=== PATIENT | female | born 1990 | race Two or more races ===

== ENCOUNTER 2024-04-22 11:12 | Observation (INO) | payer MEDICAID, SELFPAY ==
--- NOTE | 2024-04-22 11:49 | XR_ITS ---
Examination: Abdomen sonogram, Limited Date and time of exam: April 14, 2024 1510 hrs. Indications: Epigastric pain and vomiting beginning 3 days ago Technique: Real-time hodge scale transabdominal sonographic images of the upper abdomen obtained. Findings: Tiny gallstones Gallbladder sludge Gallbladder wall 0.6 cm with edema Common bile duct 0.5 cm Only partly visualized Pancreatic head 2.3 cm Liver 12.5 cm lobular contour no focal liver lesions Normal hepatopedal portal venous flow Patent IVC Impression: Acute calculus cholecystitis Given the small gallstones, consider MRCP follow-up to exclude small stones in the common bile duct Primary hepatocellular disease
[2024-04-22 11:50] VITALS: BP 136/79; PULSE 65; RESP 24; TEMP 37; O2SAT 96; BMI 29.9
--- NOTE | 2024-04-22 11:51 | PD.EDABDPN ---
ED Abdominal Pain RME/HPI General Chief Complaint: Abdominal Pain Stated complaint: Abdominal pain, vomiting X 3 days Time seen by provider: 04/22/24 11:29 Arrival date/time: 04/22/24 11:12 33-year-old female with no known medical history presents to the emergency room with a chief complaint of epigastric 8 out of 10 abdominal pain and vomiting x 3 days. Patient was sent over by her primary care provider. Source: patient Mode of arrival: ambulatory Limitations: no limitations Related Data Previous Rx's ?Medication ?Instructions ?Recorded acetaminophen 650 mg 650 mg PO Q8H PRN fever or pain 11/12/21 tablet,extended release #30 tabs ibuprofen 600 mg tablet 600 mg PO Q8H PRN fever or pain 11/12/21 #30 tabs Allergies Allergy/AdvReac Type Severity Reaction Status Date / Time No Known Allergies Allergy Verified 04/22/24 11:20 Review of Systems Review of Systems Systems Reviewed: All systems reviewed, normal except as documented Constitutional Constitutional: Reports system reviewed and no additional complaints, except as documented, Denies fatigue, Denies fever(s), Denies headache(s) and Denies weakness Eyes Eyes: Reports system reviewed and no additional complaints, except as documented, Denies blurry vision and Denies change in vision ENT Ears, Nose, Mouth, and Throat: Reports system reviewed and no additional complaints, except as documented, Denies otalgia, Denies headache(s), Denies nasal congestion, Denies throat swelling and Denies vertigo Cardiovascular Cardiovascular: Reports system reviewed and no additional complaints, except as documented, Denies chest pain, Denies dyspnea and Denies dyspnea on exertion Respiratory Respiratory: Reports system reviewed and no additional complaints, except as documented, Denies chest congestion, Denies cough, Denies dyspnea, Denies dyspnea on exertion and Denies wheezing Gastrointestinal Gastrointestinal: Reports system reviewed and no additional complaints, except as documented, Reports abdominal pain, Reports cramping, Reports dyspepsia, Reports nausea and Reports vomiting Genitourinary Genitourinary: Reports system reviewed and no additional complaints, except as documented Musculoskeletal Musculoskeletal: Reports system reviewed and no additional complaints, except as documented and Denies back pain Integumentary/Breasts Skin/Breast: Reports system reviewed and no additional complaints, except as documented and Denies wounds Neurologic Neurologic: Reports system reviewed and no additional complaints, except as documented, Denies confusion, Denies headache(s), Denies lack of coordination, Denies vertigo and Denies weakness Psychiatric Psychiatric: Reports system reviewed and no additional complaints, except as documented, Denies anxiety, Denies confusion, Denies depression, Denies paranoia, Denies suicidal ideation and Denies tactile hallucinations Endocrine Endocrine: Reports system reviewed and no additional complaints, except as documented and Denies fatigue Hematologic/Lymphatic Hematologic/Lymphatic: Reports system reviewed and no additional complaints, except as documented and Denies lymphadenopathy Allergic/Immunologic Allergic/Immunologic: Reports system reviewed and no additional complaints, except as documented, Denies throat swelling, Denies urticaria and Denies wheezing ED Exam General Limitations: Present no limitations General appearance: Present alert and in no apparent distress Head Head exam: Present atraumatic Eye Eye exam: Present normal appearance, PERRL and EOMI ENT ENT exam: Present normal exam, normal oropharynx and mucous membranes moist Neck Neck exam: Present normal inspection, full ROM and trachea midline Chest Chest inspection: Present normal inspection and symmetric chest wall rise Respiratory Respiratory exam: Present normal lung sounds bilaterally Cardiovascular Cardiovascular exam: Present regular rate, normal rhythm and normal heart sounds Abdominal Exam Abdominal exam: Present soft, tenderness, normal bowel sounds and Venegas's sign; Absent distention or guarding Abdominal tenderness: Present RUQ, epigastrium and moderate Extremities Exam Extremities exam: Present normal inspection and full ROM Back Exam Back exam: Present normal inspection and full ROM Neurological Exam Neurological exam: Present alert, oriented X3 and CN II-XII intact Psychiatric Psychiatric exam: Present normal affect and normal mood Skin Skin exam: Present warm, dry, intact and normal color Course Quality Measures none Orders Category Date Time Status COVID-19 Screening Questionnaire NOW Care 04/22/24 16:53 Active Decision to Admit X1 Care 04/22/24 16:53 Active Insert IV NOW Care 04/22/24 13:37 Active Diet Clear Liquid Diet 04/22/24 Dinner Active US gall bladder Stat Exams 04/22/24 11:49 Completed CBC Stat Lab 04/22/24 12:10 Completed CMP [Comprehensive Metabolic Panel] Stat Lab 04/22/24 12:10 Completed HCG Qualitative,Urine Stat Lab 04/22/24 12:39 Completed Lipase Stat Lab 04/22/24 12:10 Completed UA [Urinalysis] Stat Lab 04/22/24 12:39 Completed Urine Culture Stat Lab 04/22/24 12:39 Received HYDROcodone*/APAP 5/325 [Chamois 5/325] Med 04/22/24 11:49 Discontinued 1 tab PO X1 ONE Metoclopramide Inj [Reglan Inj] Med 04/22/24 13:38 Discontinued 10 mg IVP X1 ONE Morphine Inj Med 04/22/24 13:37 Discontinued 4 mg IVP X1 ONE Ondansetron Inj [Zofran Inj] Med 04/22/24 13:37 Discontinued 4 mg IV X1 ONE Ondansetron Odt [Zofran Odt] Med 04/22/24 11:49 Discontinued 4 mg PO X1 ONE POTASSIUM CHL 10 mEq IVPB [Kcl Ivpb] Med 04/22/24 13:38 Discontinued 10 meq in 100 ml IV Q1H POTASSIUM CHL 10 mEq IVPB [Kcl Ivpb] Med 04/22/24 16:43 Active 10 meq in 100 ml IV Q1H Sodium Chloride 0.9% 1000 ml [Ns] 1,000 ml Med 04/22/24 16:43 Active IV 125 mls/hr Sodium Chloride 0.9% 1000 ml [Ns] 1,000 ml Med 04/22/24 13:37 Discontinued IV 999 mls/hr Vital Signs Vital signs: Vital Signs Temperature 98.6 F 04/22/24 11:50 Pulse Rate 65 04/22/24 11:50 Respiratory Rate 24 H 04/22/24 11:50 Blood Pressure 136/79 H 04/22/24 11:50 Pulse Oximetry (%) 96 04/22/24 11:50 Oxygen Delivery Method Room Air 04/22/24 11:50 O2 saturation 96% within normal limits Abdominal Pain [facility] Narrative [facility] Narrative:: 33-year-old female with no known medical history presents to the emergency room with a chief complaint of epigastric 8 out of 10 abdominal pain and vomiting x 3 days. Patient was sent over by her primary care provider. Patient is hemodynamically stable and in no apparent distress Physical examination shows right upper quadrant abdominal pain and tenderness with a positive Venegas sign. Ultrasound of the gallbladder was completed and shows acute calculus cholecystitis. There is also primary hepatocellular disease. Dr Cruz the general surgeon on-call was consulted and he will admit the patient for possible surgery tomorrow All his orders were placed. Patient data External records reviewed:: [facility] previous records Clinical information provided by:: patient Social determinants that could affect healthcare access:: none Patient has the following chronic illnesses:: No chronic illness How is presenting disease/condition affected by chronic disease/condition?: no chronic disease Evaluation data The following diagnostics were reviewed and interpreted by me:: lab results and radiology exam(s) Lab and/or radiology exams considered but not ordered:: Labs and radiology exams considered and ordered Interpretation Summary: Ultrasound gallbladder-Findings: Tiny gallstones Gallbladder sludge Gallbladder wall 0.6 cm with edema Common bile duct 0.5 cm Only partly visualized Pancreatic head 2.3 cm Liver 12.5 cm lobular contour no focal liver lesions Normal hepatopedal portal venous flow Patent IVC Impression: Acute calculus cholecystitis Given the small gallstones, consider MRCP follow-up to exclude small stones in the common bile duct Primary hepatocellular disease Medications / Prescriptions Medications or Prescriptions considered but not ordered:: Medication given Medication administrations:: Medication Administration History Sodium Chloride (Ns) 1,000 mls @ 125 mls/hr IV .Q8H EBONI Stop: 05/22/24 16:42 Last Admin: 04/22/24 16:45 Dose: 125 mls/hr Documented By: NINO Potassium Chloride (Kcl Ivpb) 10 meq in 100 mls @ 100 mls/hr IV Q1H EBONI Stop: 04/22/24 18:42 Discontinued Medications Hydrocodone Bitart/Acetaminophen (Hydrocodone/Apap 5/325 Tablet) 1 tab PO X1 ONE Stop: 04/22/24 11:50 Last Admin: 04/22/24 12:35 Dose: 1 tab Documented By: BD Sodium Chloride (Ns) 1,000 mls @ 999 mls/hr IV .Q1H1M ONE Stop: 04/22/24 14:37 Last Infusion: 04/22/24 16:34 Dose: Infused Documented By: Admin: 04/22/24 15:28 Dose: 999 mls/hr Documented By: NINO Potassium Chloride (Kcl Ivpb) 10 meq in 100 mls @ 100 mls/hr IV Q1H EBONI Stop: 04/22/24 15:37 Last Admin: 04/22/24 16:32 Dose: 80 mls/hr Documented By: Infusion: 04/22/24 16:32 Dose: Infused Documented By: Admin: 04/22/24 15:33 Dose: 100 mls/hr Documented By: NINO Metoclopramide HCl (Metoclopramide Inj 5 Mg/Ml Vial 2 Ml) 10 mg IVP X1 ONE; Protocol Stop: 04/22/24 13:39 Last Admin: 04/22/24 15:28 Dose: 10 mg Documented By: DB Morphine Sulfate (Morphine Sulf Inj 10 Mg/Ml Vial) 4 mg IVP X1 ONE Stop: 04/22/24 13:38 Last Admin: 04/22/24 15:29 Dose: 4 mg Documented By: DB Ondansetron HCl (Ondansetron Odt 4 Mg Tabrap) 4 mg PO X1 ONE; Protocol Stop: 04/22/24 11:50 Last Admin: 04/22/24 12:36 Dose: 4 mg Documented By: BD Ondansetron HCl (Ondansetron Inj 2 Mg/Ml Inj 2 Ml) 4 mg IV X1 ONE; Protocol Stop: 04/22/24 13:38 Last Admin: 04/22/24 15:34 Dose: Not Given Documented By: DB Non-Admin Reason: Cancelled by Provider Medication given Consultations Consultation(s) initiated? (list below): Yes Consultation #1 (Physician, Specialty, Details): Dr Cruz, general surgeon, acute cholecystitis Time: 15:00 Diagnosis Differential diagnosis abdominal pain: abdominal pain, diverticulitis, gastroenteritis, small bowel obstruction and other (Cholelithiasis/cholecystitis) Most likely diagnosis given after review of the tests above:: Acute cholecystitis Admission Indicated Admission indicated?: indicated Admission Request Was there a request for admission?: Yes Admission Attestation Admission request attestation: Discussed case with [] from Hospitalist service regarding admission. Discussed patients ED course, exam findings, labs, and radiology results. The Hospitalist [agrees,declines] to accept the patient for admission. Disposition Plan Disposition Plan: Admit Discharge Plan Plan Patient Disposition: Admit Acute Care w/in Hospital Disposition Comment: Stable Prescriptions/Referrals Prescriptions/Med Rec: No Action acetaminophen 650 mg tablet extended release 650 mg PO Q8H PRN (Reason: fever or pain) Qty: 30 0RF Rx Instructions: swallow whole; do not chew/break/dissolve/open ibuprofen 600 mg tablet 600 mg PO Q8H PRN (Reason: fever or pain) Qty: 30 0RF Referrals: No Primary/Family,Physician [Primary Care Provider] - In 1 week Problem List Clinical Impression: Acute calculous cholecystitis, Nausea & vomiting Patient/Caregiver Discharge Instructions Print Language: Divehi Stand Alone Forms: [employer] Award Info., Patient Portal Info Letter
[2024-04-22] MEDS: HYDROcodone/APAP 5/325 TABLET 1 TAB PO (12:35)
[2024-04-22] MEDS: ONDANSETRON ODT 4 MG TABRAP PO (12:36)
[2024-04-22 12:40] LABS: Basophils % (Auto) 0 % (0-2.5); Eosinophils % (Auto) 0 % (0-10); Hematocrit 42.1 % (36.0-46.0); Hemoglobin 15.1 g/dL (12.0-16.0); Immature Granulocytes % (Auto) 0 % (0-0); Immature Granulocytes Auto 0.04 Thou/mm3 (0.00-0.00); Lymphocytes # (Auto) 1.3 Thou/mm3 (1.0-4.8); Lymphocytes % (Auto) 12 % (10-50); Mean Corpuscular HGB Conc 35.9 g/dl (31.0-37.0); Mean Corpuscular Hemoglobin 30.2 pg (25.0-35.0); Mean Corpuscular Volume 84 fL (80-100); Monocytes # (Auto) 0.8 Thou/mm3 (0.0-0.8); Monocytes % (Auto) 8 % (0-12); Neutrophils # (Auto) 8.6 Thou/mm3 (1.8-7.7); Neutrophils % (Auto) 80 % (37-80); Nucleated Red Blood Cell % 0 /100 WBC (0); Platelet Count 254 Thou/mm3 (140-440); RDW Standard Deviation 41.2 fL (36.4-46.3); White Blood Count 10.7 Thou/mm3 (3.6-11.0)
[2024-04-22 12:45] LABS: Collection Type, Urine Clean Catch
[2024-04-22 13:08] LABS: Alanine Aminotransferase 10 U/L (10-49); Albumin, Serum 4.9 gm/dL (3.5-5.0); Albumin/Globulin Ratio 1.3 (1.2-2.2); Alkaline Phosphatase 84 U/L (46-116); Anion Gap 21 (7-16); Aspartate Amino Transferase 17 U/L (0-34); BUN/Creatinine Ratio 6 Ratio (12-20); Bilirubin,Total 1.1 mg/dL (0.3-1.2); Blood Urea Nitrogen 7 mg/dL (9-23); Calcium 10.4 mg/dL (8.3-10.6); Calcium (Corrected) 10.4 mg/dL (8.5-10.1); Carbon Dioxide 16.2 mMol/L (20.0-31.0); Chloride 105 mMol/L (98-107); Creatinine (Component) 1.2 mg/dL (0.6-1.3); Globulin 3.9 gm/dL (2.3-3.5); Glucose 98 mg/dL (74-106); Lipase 45 U/L (12-53); Osmolality,Calculated 281 (275-295); Sodium 142 mMol/L (136-145); Total Protein 8.8 gm/dL (5.7-8.2); eGFR > 60 See Note
[2024-04-22 13:11] LABS: HCG Qualitative,Urine Negative
[2024-04-22 13:12] LABS: Potassium 2.7 mMol/L (3.4-5.1)
[2024-04-22 13:15] LABS: Bacteria,Urine Rare; Bilirubin,Urine 1+ (Negative); Blood,Urine Negative (Negative); Clarity,Urine Turbid (Clear/Hazy); Color,Urine Yellow (Lt Yel-Yel); Glucose, Urine Trace (Negative); Hyaline Casts,Urine 6 /hpf (0-1); Ketones,Urine 4+ (Negative); Leukocyte Esterase,Urine Negative (Negative); Nitrite,Urine Negative (Negative); PH,Urine 6.5 (5.0-7.0); Protein,Urine 3+ (Neg - Trace); RBC,Urine 3 /hpf (0-3); Specific Gravity,Urine 1.027 (1.001-1.035); Squamous Epithelial Cell,Urine 43 /hpf (0-5); WBC,Urine 9 /hpf (0-5)
[2024-04-22 14:43] VITALS: BP 125/97; PULSE 126; RESP 20; TEMP 37.2
[2024-04-22] MEDS: SODIUM CHLORIDE 0.9% 1000 ML 1,000 ML 999 ML IV (15:28)
[2024-04-22] MEDS: METOCLOPRAMIDE INJ 5 MG/ML VIAL 2 ML 10 MG IVP (15:28)
[2024-04-22] MEDS: MORPHINE SULF INJ 10 MG/ML VIAL 4 MG IVP (15:29)
[2024-04-22] MEDS: POTASSIUM CHL 10 mEq IVPB 10 MEQ/100 ML BAG 100 MEQ IV (15:33)
[2024-04-22 16:13] VITALS: BP 123/76; PULSE 97; RESP 17; TEMP 36.3; O2SAT 98
[2024-04-22] MEDS: POTASSIUM CHL 10 mEq IVPB 10 MEQ/100 ML BAG 80 MEQ IV (16:32)
[2024-04-22] MEDS: SODIUM CHLORIDE 0.9% 1000 ML 1,000 ML 125 ML IV (16:45)
[2024-04-22] MEDS: PIPER/TAZO INJ 3.375 GM in SODIUM CHLORIDE 0.9% (Popper) 50 ML IV ×2 (18:29→22:37)
[2024-04-22 18:59] VITALS: BMI 29.9
[2024-04-22 19:12] VITALS: BP 115/71; PULSE 110; RESP 16; TEMP 36.7; O2SAT 100
[2024-04-22] MEDS: POTASSIUM CHL 10 mEq IVPB 10 MEQ/100 ML BAG 75 MEQ IV ×2 (19:23→21:10)
[2024-04-22] MEDS: PANTOPRAZOLE 40 MG TABLET PO (19:48)
[2024-04-22 20:00] VITALS: BP 102/66; PULSE 102; RESP 18; TEMP 36.5; O2SAT 95
[2024-04-23] VITALS (13 sets, daily range): BP systolic 97–126; BP diastolic 64–98; PULSE 54–100; RESP 16–99; TEMP 36.1–36.9; O2SAT 97–100
[2024-04-23] MEDS: SODIUM CHLORIDE 0.9% 1000 ML 1,000 ML 125 ML IV ×2 (01:04→17:22)
[2024-04-23] MEDS: PIPER/TAZO INJ 3.375 GM in SODIUM CHLORIDE 0.9% (Popper) 50 ML IV ×3 (05:15→21:23)
[2024-04-23 06:21] LABS: Anion Gap 13 (7-16); Carbon Dioxide 19.1 mMol/L (20.0-31.0); Chloride 112 mMol/L (98-107); Potassium 3.2 mMol/L (3.4-5.1); Sodium 144 mMol/L (136-145)
[2024-04-23] MEDS: POTASSIUM CHLORIDE 20 mEq TABCR 40 MEQ PO (06:56)
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
--- NOTE | 2024-04-23 09:05 | PC.NURSE ---
Patient to surgery via gurney for cholecystectomy accompanied by OR nurse.
--- NOTE | 2024-04-23 11:20 | PC.NURSE ---
OR Nurse Adriane called and asked this nurse to pull zosyn medication for the patient due for 14:00PM. Zosyn pulled from pyxis and hand over to OR nurse.
--- NOTE | 2024-04-23 11:31 | SUR.PHASEI ---
Arrived to recovery bay 1 via gurney. Report received from Adriane MCGRAW and Dr. Rodriguez. Resting with eyes closed, oral airway in place. No s/o distress or discomfort. Respirations even and unlabored.
--- NOTE | 2024-04-23 11:45 | SUR.PHASEI ---
Oral airway removed. Awake, alert, responding to questions and commands appropriately.
[2024-04-23] MEDS: ACETAMINOPHEN IVPB 1,000 MG/100 ML VIAL 250 MG IV ×3 (11:47→23:37)
[2024-04-23] MEDS: HYDROmorphone INJ 2 MG/ML VIAL 0.4 MG IV (11:51)
--- NOTE | 2024-04-23 11:54 | PD.SUROPNT ---
Date of Procedure 04/23/24 Pre Op Diagnosis Acute cholecystitis with cholelithiasis Post Op Diagnosis Same Procedure Laparoscopic cholecystectomy Findings Patient was found to have a edematous gallbladder due to the inflammation and multiple small gallstones with a sludge Procedure Description After endotracheal anesthesia was given the patient was placed in supine position and the abdomen was prepped with chloroprep solution and draped in a sterile manner. After time out was performed I injected a few cc of of half percent Marcaine with epinephrine below the umbilicus and I made an incision for about 3 cm in length. The fascia was cleaned and Veress needle was inserted to create a pneumoperitoneum up to 15 mmHg. Then introduced a 12 mm trocar and a 10 mm camera through the fascia and I inspected the intra-abdominal organs as well as the gallbladder and the liver. Another 5 mm trocar was inserted in the epigastric region under direct vision after injecting some local anesthesia. At this time the patient was kept in reverse Trendelenburg position with the left lateral tilt. The third 5 mm trocar was inserted over the mid axillary line under direct vision and a Roel and Vanda grasper was used to hold the fundus of the gallbladder. The retraction was carried out by the tourist information assistant moving the fundus of the gallbladder towards the right shoulder of the patient to create enough traction. I placed a another 5 mm trocar in the midaxillary line just lateral to the rectus muscle under direct vision. I used a fenestrated grasper to retract the neck of the gallbladder laterally towards the patient's right hip. The fenestrated grasper tore the neck of the gallbladder and the bile leaked out. The Calot's triangle was exposed and I achieved the critical view of safety as follows: I dissected out the fatty tissue from the hepatocystic triangle and cleared this area. I also dissected inferior and posterior to the gallbladder to identify the cystic duct and the gallbladder wall. Then superiorly I dissected along the cystic plate up to lower one third third of the gallbladder to lift the gallbladder from the liver. At this time I confirmed that only 2 structures entering the gallbladder were cystic artery and the cystic duct. The cystic artery could not be clearly seen because it was very close to the cystic duct. The common duct was seen distally but no dissection was carried out around the duct. I did not see any need for operative cholangiogram in this patient. The cystic duct was clipped doubly and then divided. Then the gallbladder was removed from the liver bed using Harmonic glory to control the small blood vessels as the dissection proceeded. Then the gallbladder was from the liver bed completely and delivered through the umbilical port using an Endopouch. The liver bed was coagulated with cautery to obtain satisfactory hemostasis. The trocars were pulled out from the abdominal cavity and the fascia at the umbilical incision was closed with interrupted 0 Ethibond. Subcutaneous tissues was closed with 3-0 chromic and injected a few cc of half percent Marcaine with epinephrine and the skin was closed with interrupted 4-0 subcuticular stitches at all the trocar sites. Dressing was applied with 2 x 2 and Tegaderm. Patient tolerated the procedure well and returned to recovery room in stable condition. Anesthesia GETA Pathology / specimen Other (Gallbladder and the stones) IVF Infused 400 Estimated Blood Loss 50 Surgeon Jazmin Cruz MD Surgical Staff Operation Date: 04/23/24 10:15 Case Staff Anesthesiologist: Oz Rodriguez RN First Assistant: Codi Marin
--- NOTE | 2024-04-23 12:07 | SUR.PHASEI ---
Taken to room 358 via gurney by Renea MCGRAW. Tolerated 7up and ice chips PO. States feeling pressure in abdomen area. States she feels like it's gas. Made aware to pass gas if possible at this time. Report given to Charla MCGRAW.
--- NOTE | 2024-04-23 12:45 | PC.NURSE ---
Patient to med surg unit from surgery via gurney after lap cholecystectomy. Patient is shivering and complaining of gas pain. Assisted position to bed, provided safety and comfort. Instructed to move around to reduce gas pain.
[2024-04-23] MEDS: MORPHINE SULF INJ 10 MG/ML VIAL 4 MG IVP (18:20)
--- NOTE | 2024-04-23 18:38 | PC.NURSE ---
Patient is complaining of gas pain, no nausea and vomiting. CELESTE Campbell walked with the patient which helped relieved the pain.
[2024-04-23] MEDS: PANTOPRAZOLE 40 MG TABLET PO (20:06)
[2024-04-24] MEDS: SODIUM CHLORIDE 0.9% 1000 ML 1,000 ML 125 ML IV (02:14)
[2024-04-24] MEDS: MORPHINE SULF INJ 10 MG/ML VIAL 4 MG IVP (03:49)
[2024-04-24 04:00] VITALS: BP 119/83; PULSE 82; RESP 20; TEMP 36.6; O2SAT 100
[2024-04-24] MEDS: PIPER/TAZO INJ 3.375 GM in SODIUM CHLORIDE 0.9% (Popper) 50 ML IV (05:28)
[2024-04-24] MEDS: ONDANSETRON INJ 2 MG/ML INJ 2 ML 4 MG IV (05:52)
[2024-04-24 08:00] VITALS: BP 123/81; PULSE 93; RESP 18; TEMP 36.2; O2SAT 99
[2024-04-24] MEDS: PANTOPRAZOLE 40 MG TABLET PO (08:18)
[2024-04-24 10:42] VITALS: PULSE 62; RESP 19; RESP 96
--- NOTE | 2024-04-24 11:26 | PC.SS ---
Elsi Boykin is a 33-year-old female admitted to [facility] for Acute Calculus Cholecystitis. SS conducted bedside contact with the patient to complete initial assessment and to discuss discharge planning.? Patient confirmed demographic information. Patient identifies her mother Mercedes Bokyin [phone] as her medical decision maker. Pt resides at home with her parents. Pt is independent with all ADLS. No need for any DME. Pharmacy of choice is [facility]. Pt wishes to return home when she is DC. No further needs identified.
[2024-04-24 12:00] VITALS: BP 117/85; PULSE 94; RESP 18; TEMP 36.4; O2SAT 100
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
== END 2024-04-24 13:30 | disposition home or self-care (01) ==
LOC: SERX 17:17 → SERHOLD 18:15 → S3NX 18:50
PROVIDERS: Nurse Practitioner Family; Admitting Provider Surgery; Emergency Provider Emergency Medicine; Visit Provider Surgery
PROC: 0FT44ZZ Resection of Gallbladder, Percutaneous Endoscopic Approach (ICD-10-PCS; CPT 47562; principal; 2024-04-23 10:00)
DX: K80.00 Calculus of gallbladder with acute cholecystitis without obstruction (principal); E87.6 Hypokalemia; F17.200 Nicotine dependence, unspecified, uncomplicated
CPT/HCPCS: 47563; 36415; 76705; 80051; 80053; 81001; 81025; 83690; 85025; 87086; 96361; 96365; 96366; 96375; 99285; G0378; J0131; J1100; J1885; J2250; J2270; J2405; J2543; J2704; J2765; J3010; J3480; J3490; J7030; J7050; Q0162; A9270